=== PATIENT | female | born 1970 | race Caucasian/White ===

== ENCOUNTER 2020-08-16 11:34 | Inpatient (IN) | payer OTHER ==
[2020-08-16 12:05] VITALS: BMI 34.7
[2020-08-16] MEDS ORDERED: MAGNESIUM CITRATE 300 ML BOTTLE PO PRN (12:38)
[2020-08-16] MEDS ORDERED: MAGNESIUM HYDROX 2400MG/30ML ORAL SUSPENSION 30 ML CUP PO PRN (12:38)
[2020-08-16] MEDS ORDERED: MENTHOL/PHENOL 1 EACH UD MM PRN (12:38)
[2020-08-16] MEDS ORDERED: ACETAMINOPHEN 325 MG TABLET (FP) PO PRN ×2 (12:38)
[2020-08-16] MEDS ORDERED: ONDANSETRON *ODT* 4 MG TABLET SL PRN (12:38)
[2020-08-16] MEDS ORDERED: MAG HYDROX/AL HYDROX/SIMETH 30 ML UNIT-DOSE CUP PO PRN (12:38)
[2020-08-16] MEDS ORDERED: BISMUTH SUBSALICYLATE 524 MG/30 ML PO PRN (12:38)
[2020-08-16] MEDS ORDERED: IBUPROFEN 400 MG TABLET (FP) PO PRN (12:38)
[2020-08-16] MEDS: PRENATAL VITAMINS W/ FOLIC ACID TABLET (FP) PO SCH (15:03)
[2020-08-16] MEDS: hydrOXYzine PAMOATE 25 MG CAPSULE (FP) PO SCH ×3 (15:03→22:22)
[2020-08-16] MEDS: METHOCARBAMOL 500 MG TABLET PO PRN (15:03)
[2020-08-16] MEDS: LORazepam 1 MG TABLET PO PRN (15:04)
[2020-08-16 15:31] LABS: MCH 31.4 pg (25.7-33.7); MCHC 34.1 g/dl (32.0-36.0); MEAN CELL VOLUME 92.2 fl (80-96); MEAN PLT VOLUME 8.5 fl (7.5-11.1); PLATELET COUNT 377 10^3/uL (134-434); RBC 4.45 M/mm3 (3.60-5.2); RDW 14.4 % (11.6-15.6); WHITE BLOOD COUNT 9.9 K/mm3 (4.0-10.0)
[2020-08-16 15:44] LABS: ALBUMIN 4.1 g/dl (3.4-5.0); CALCIUM 9.1 mg/dL (8.5-10.1)
[2020-08-16 15:45] LABS: BLOOD UREA NITROGEN 12.2 mg/dL (7-18); CREATININE 0.7 mg/dL (0.55-1.3)
[2020-08-16 15:46] LABS: BILIRUBIN,TOTAL 0.6 mg/dL (0.2-1); TOT PROT 7.9 g/dl (6.4-8.2)
[2020-08-16] MEDS: LORazepam 2 MG TABLET PO SCH ×2 (17:35→22:22)
[2020-08-16] MEDS ORDERED: ZIPRASIDONE 40 MG CAPSULE PO SCH ×2 (20:52→23:00)
[2020-08-16] MEDS ORDERED: BENZTROPINE MESYLATE 1 MG TABLET PO SCH (20:54)
[2020-08-16] MEDS: MELATONIN 5 MG TABLETS PO SCH (22:23)
[2020-08-16] MEDS: THIAMINE HCL 100 MG TABLET (FP) PO SCH (22:23)
[2020-08-16] MEDS: BENZTROPINE MESYLATE 1 MG TABLET PO SCH (23:37)
[2020-08-16] MEDS: ZIPRASIDONE 40 MG CAPSULE PO SCH (23:38)
[2020-08-17] MEDS: hydrOXYzine PAMOATE 25 MG CAPSULE (FP) PO SCH ×5 (05:53→22:05)
[2020-08-17] MEDS: LORazepam 2 MG TABLET PO SCH ×4 (05:53→22:06)
[2020-08-17] MEDS ORDERED: ZIPRASIDONE 40 MG CAPSULE PO SCH ×2 (10:00→20:04)
[2020-08-17] MEDS ORDERED: BENZTROPINE MESYLATE 1 MG TABLET PO SCH ×2 (10:00→20:09)
[2020-08-17] MEDS: PRENATAL VITAMINS W/ FOLIC ACID TABLET (FP) PO SCH (10:05)
[2020-08-17] MEDS: FLUoxetine HCL 20 MG CAPSULE PO SCH (10:05)
[2020-08-17] MEDS: METHOCARBAMOL 500 MG TABLET PO PRN (10:05)
[2020-08-17] MEDS: LORazepam 1 MG TABLET PO PRN (13:18)
[2020-08-17] MEDS: amLODIPine BESYLATE 10 MG TABLET (FP) PO SCH (15:25)
[2020-08-17] MEDS: HYDROCORTISONE 1% TOPICAL CREAM 30 GM TUBE TP SCH ×2 (15:25→22:29)
[2020-08-17] MEDS: MELATONIN 5 MG TABLETS PO SCH (22:05)
[2020-08-17] MEDS: THIAMINE HCL 100 MG TABLET (FP) PO SCH (22:06)
[2020-08-17] MEDS: ZIPRASIDONE 40 MG CAPSULE PO SCH (22:06)
[2020-08-17] MEDS: BENZTROPINE MESYLATE 1 MG TABLET PO SCH (22:06)
[2020-08-18] MEDS: LORazepam 1 MG TABLET PO SCH ×4 (06:17→22:36)
[2020-08-18] MEDS: hydrOXYzine PAMOATE 25 MG CAPSULE (FP) PO SCH ×5 (06:18→22:36)
[2020-08-18] MEDS: PRENATAL VITAMINS W/ FOLIC ACID TABLET (FP) PO SCH (10:26)
[2020-08-18] MEDS: HYDROCORTISONE 1% TOPICAL CREAM 30 GM TUBE TP SCH ×2 (10:26→22:38)
[2020-08-18] MEDS: FLUoxetine HCL 20 MG CAPSULE PO SCH (10:26)
[2020-08-18] MEDS: amLODIPine BESYLATE 10 MG TABLET (FP) PO SCH (10:27)
[2020-08-18] MEDS: METHOCARBAMOL 500 MG TABLET PO PRN (10:27)
[2020-08-18 12:18] LABS: HIV INTERPRETATION NEGATIVE (NEGATIVE)
[2020-08-18] MEDS: LORazepam 1 MG TABLET PO PRN ×2 (13:32→20:20)
[2020-08-18] MEDS: BENZTROPINE MESYLATE 1 MG TABLET PO SCH (17:40)
[2020-08-18] MEDS: ZIPRASIDONE 40 MG CAPSULE PO SCH (17:40)
[2020-08-18] MEDS: MELATONIN 5 MG TABLETS PO SCH (22:36)
[2020-08-18] MEDS: THIAMINE HCL 100 MG TABLET (FP) PO SCH (22:36)
[2020-08-19] MEDS ORDERED: LORazepam 0.5 MG TABLET PO PRN
[2020-08-19] MEDS: hydrOXYzine PAMOATE 25 MG CAPSULE (FP) PO SCH ×4 (06:13→17:37)
[2020-08-19] MEDS: LORazepam 0.5 MG TABLET PO SCH ×3 (06:13→17:38)
[2020-08-19] MEDS: FLUoxetine HCL 20 MG CAPSULE PO SCH (10:19)
[2020-08-19] MEDS: amLODIPine BESYLATE 10 MG TABLET (FP) PO SCH (10:19)
[2020-08-19] MEDS: PRENATAL VITAMINS W/ FOLIC ACID TABLET (FP) PO SCH (10:20)
[2020-08-19] MEDS: HYDROCORTISONE 1% TOPICAL CREAM 30 GM TUBE TP SCH (10:21)
[2020-08-19] MEDS: ZIPRASIDONE 40 MG CAPSULE PO SCH (17:37)
[2020-08-19] MEDS: BENZTROPINE MESYLATE 1 MG TABLET PO SCH (17:37)
[2020-08-20] MEDS: MELATONIN 5 MG TABLETS PO SCH (00:09)
[2020-08-20] MEDS: HYDROCORTISONE 1% TOPICAL CREAM 30 GM TUBE TP SCH ×2 (00:09→11:18)
[2020-08-20] MEDS: hydrOXYzine PAMOATE 25 MG CAPSULE (FP) PO SCH ×3 (00:10→11:21)
[2020-08-20] MEDS: LORazepam 0.5 MG TABLET PO SCH (00:10)
[2020-08-20] MEDS: THIAMINE HCL 100 MG TABLET (FP) PO SCH (00:10)
[2020-08-20] MEDS ORDERED: LORazepam 0.5 MG TABLET PO ONE (05:00)
[2020-08-20 08:03] VITALS: BP 119/78; PULSE 69; TEMP 97.3
[2020-08-20] MEDS: PRENATAL VITAMINS W/ FOLIC ACID TABLET (FP) PO SCH (11:19)
[2020-08-20] MEDS: amLODIPine BESYLATE 10 MG TABLET (FP) PO SCH (11:20)
[2020-08-20] MEDS: FLUoxetine HCL 20 MG CAPSULE PO SCH (11:21)
== END 2020-08-20 10:00 | disposition home or self-care (01) | DRG 897 ==
LOC: YASAS 11:34 → Y6N 12:56
PROVIDERS: ADMIT Allergy & Immunology; ATTEND Allergy & Immunology
PROC: HZ2ZZZZ Detoxification Services for Substance Abuse Treatment (ICD-10-PCS; principal; 2020-08-16)
DX: F10.230 Alcohol dependence with withdrawal, uncomplicated (principal); F25.1 Schizoaffective disorder, depressive type; F19.24 Other psychoactive substance dependence with psychoactive substance-induced mood disorder; F43.10 Post-traumatic stress disorder, unspecified; I10 Essential (primary) hypertension; E78.5 Hyperlipidemia, unspecified; L40.9 Psoriasis, unspecified; L40.50 Arthropathic psoriasis, unspecified; M54.5 Low back pain; G89.29 Other chronic pain; R74.01 Elevation of levels of liver transaminase levels; Z87.891 Personal history of nicotine dependence; E66.9 Obesity, unspecified; Z68.34 Body mass index [BMI] 34.0-34.9, adult; Z86.73 Personal history of transient ischemic attack (TIA), and cerebral infarction without residual deficits; Z86.69 Personal history of other diseases of the nervous system and sense organs; Z91.5 Personal history of self-harm; Z91.013 Allergy to seafood
CPT/HCPCS: 36415; 80053; 81025; 85027; 86780; 87389; 93005; 93010; C9803; U0003; U0005